=== PATIENT | male | born 1995 | race Caucasian/White ===

== ENCOUNTER 2017-06-11 06:48 | Emergency (ER) | payer BC, OTHER ==
[~2017-06-11] VITALS: Ht 167.6 cm; Wt 85.2 kg
[~2017-06-11 06:48] MED LIST: ALL180 PO
[2017-06-11 06:53] VITALS: TEMP 36.5; Ht 167.6 cm; Wt 85.2 kg
[2017-06-11 06:56] VITALS: O2SAT 99
[2017-06-11] MEDS ORDERED: LORAZEPAM 1 MG TAB SL STA ×2 (07:25→07:35)
[2017-06-11] MEDS ORDERED: ONDANSETRON 4MG OD TAB PO ONE (07:45)
[2017-06-11 09:53] VITALS: BP 116/66; PULSE 91; O2SAT 96
[2017-06-11] MEDS ORDERED: LORA-741 SL (09:54)
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
== END 2017-06-11 09:54 | disposition home or self-care (01) ==
LOC: C.EDB 06:50 → C.EDA 09:54
DX: F41.9 Anxiety disorder, unspecified (principal); J45.909 Unspecified asthma, uncomplicated; F17.210 Nicotine dependence, cigarettes, uncomplicated; Z80.9 Family history of malignant neoplasm, unspecified; Z83.3 Family history of diabetes mellitus; Z82.49 Family history of ischemic heart disease and other diseases of the circulatory system; Z84.1 Family history of disorders of kidney and ureter